=== PATIENT | male | born 1965 | race Caucasian/White ===

== ENCOUNTER 2020-10-01 14:27 | Emergency (ER) | payer BC ==
[~2020-10-01] VITALS: Ht 185.4 cm; Wt 111.1 kg
== END 2020-10-01 15:44 | disposition home or self-care (01) ==
LOC: ER 15:26
DX: U07.1 COVID-19 (principal); I10 Essential (primary) hypertension
CPT/HCPCS: 99282; U0002

== ENCOUNTER 2023-10-15 18:15 | Inpatient (IN) | payer BC, OTHER ==
[~2023-10-15] VITALS: Ht 182.9 cm; Wt 113.4 kg
[2023-10-15] MEDS ORDERED: ASPIRIN 81 MG CHEW TAB PO ONE (18:30)
[2023-10-15 18:37] LABS: BASOPHILS % 0.3 % (0.0-1.0); EOSINOPHILS % 0.3 % (0.0-6.0); HEMATOCRIT 43.8 % (38.2-49.6); HEMOGLOBIN 15.4 g/dL (14.0-18.0); LYMPHOCYTES # (AUTO) 7.8 (1.0-3.2); MEAN CORPUSCULAR HEMOGLOBIN 28.3 pg (28-32); MEAN CORPUSCULAR HGB CONC 35.2 g/dL (31-35); MEAN CORPUSCULAR VOLUME 80.5 fL (81-99); MONOCYTES # (AUTO) 0.9 (0.2-0.8); MONOCYTES % 6.1 % (4.4-11.3); NEUTROPHILS # (AUTO) 6.4 (2.1-6.9); NEUTROPHILS % 42.1 % (38.7-80.0); PLATELET COUNT 271 x10e3/uL (140-360); RED BLOOD COUNT 5.44 x10e6/uL (4.3-5.7); RED CELL DISTRIBUTION WIDTH 12.1 % (11.7-14.4); WHITE BLOOD COUNT 15.29 x10e3/uL (4.8-10.8)
[2023-10-15 18:51] LABS: ALBUMIN 4.5 g/dL (3.5-5.0); ALBUMIN/GLOBULIN RATIO 1.3 (0.8-2.0); ANION GAP 17.2 mmol/L (8-16); BILIRUBIN,TOTAL 1.2 mg/dL (0.2-1.2); CALCIUM 9.8 mg/dL (8.4-10.2); CREATININE, SERUM 0.79 mg/dL (0.72-1.25)
[2023-10-15 18:56] LABS: POTASSIUM 3.2 mmol/L (3.5-5.1)
[2023-10-15 18:57] LABS: TROPONIN I 0.016 ng/mL (0-0.300)
[2023-10-15] MEDS ORDERED: Morphine 4mg INJECTION 4 MG/ML INJ IV STA (19:03)
[2023-10-15] MEDS ORDERED: ONDANSETRON HCL INJ 2MG/ML 2ML 2 MG/ML VIAL IV STA (19:03)
[2023-10-15] MEDS ORDERED: IOPAMIDOL 370 MG/ML 100 ML INFUS..BTL INJ ONE (19:22)
[2023-10-15] MEDS ORDERED: Morphine 4mg INJECTION 4 MG/ML INJ IV PRN (21:30)
[2023-10-15] MEDS ORDERED: ONDANSETRON HCL INJ 2MG/ML 2ML 2 MG/ML VIAL IV PRN (21:30)
[2023-10-15] MEDS: SODIUM CHLORIDE 0.9% 1000ML 1,000 ML IV SCH (22:15)
[2023-10-15 22:54] LABS: TROPONIN I 0.016 ng/mL (0-0.300)
[2023-10-16] MEDS: SODIUM CHLORIDE 0.9% 1000ML 1,000 ML IV SCH ×2 (05:23→18:15)
[2023-10-16 05:48] LABS: BASOPHILS % 0.2 % (0.0-1.0); EOSINOPHILS # (AUTO) 0.1 (0.0-0.4); EOSINOPHILS % 0.8 % (0.0-6.0); HEMATOCRIT 41.1 % (38.2-49.6); HEMOGLOBIN 14.1 g/dL (14.0-18.0); LYMPHOCYTES # (AUTO) 7.5 (1.0-3.2); LYMPHOCYTES % 57.8 % (18.0-39.1); MEAN CORPUSCULAR HGB CONC 34.3 g/dL (31-35); MEAN CORPUSCULAR VOLUME 81.7 fL (81-99); MONOCYTES # (AUTO) 0.9 (0.2-0.8); MONOCYTES % 6.8 % (4.4-11.3); NEUTROPHILS # (AUTO) 4.4 (2.1-6.9); NEUTROPHILS % 34.2 % (38.7-80.0); PLATELET COUNT 219 x10e3/uL (140-360); RED BLOOD COUNT 5.03 x10e6/uL (4.3-5.7); RED CELL DISTRIBUTION WIDTH 12.3 % (11.7-14.4)
[2023-10-16 06:09] LABS: ALBUMIN/GLOBULIN RATIO 1.3 (0.8-2.0); ANION GAP 15.1 mmol/L (8-16); CALCIUM 9.5 mg/dL (8.4-10.2); CREATININE, SERUM 0.82 mg/dL (0.72-1.25); TOTAL PROTEIN 7.2 g/dL (6.5-8.1)
[2023-10-16 06:30] LABS: POTASSIUM 3.1 mmol/L (3.5-5.1)
[2023-10-16 06:41] LABS: TROPONIN I 0.013 ng/mL (0-0.300)
[2023-10-16] MEDS ORDERED: MELATONIN 3 MG TAB PO PRN (06:45)
[2023-10-16] MEDS ORDERED: SIMETHICONE 80 MG CHEW PO PRN (06:45)
[2023-10-16] MEDS ORDERED: METOPROLOL TARTRATE INJ 1 MG/ML VIAL IV PRN (06:45)
[2023-10-16] MEDS ORDERED: DOCUSATE SODIUM 100 MG CAP PO PRN (06:45)
[2023-10-16] MEDS ORDERED: ALBUTEROL/IPRATROPIUM 3 ML NEB NEB PRN (06:45)
[2023-10-16] MEDS ORDERED: ACETAMINOPHEN 325 MG TAB PO PRN (06:45)
[2023-10-16 07:31] LABS: CHOL/HDL RATIO 4.5 (3.9-4.7)
[2023-10-16] MEDS ORDERED: METOPROLOL TARTRATE 25 MG TAB PO SCH (09:00)
[2023-10-16] MEDS ORDERED: METFORMIN HCL850 MG PO (09:59)
[2023-10-16] MEDS ORDERED: LISINOPRIL-HCT1 EAC1 PO (09:59)
[2023-10-16] MEDS ORDERED: METOPROLOL SUCC50 MG PO (09:59)
[2023-10-16] MEDS ORDERED: DEXTROAMP-AMPHE20 M1 PO (09:59)
[2023-10-16] MEDS ORDERED: ATORVASTATIN CA40 MG PO (09:59)
[2023-10-16] MEDS ORDERED: ASPIRIN81 MG PO (10:00)
[2023-10-16] MEDS ORDERED: OMEPRAZOLE40 MG PO (10:00)
[2023-10-16] MEDS: ASPIRIN 325 MG TAB PO SCH (10:07)
[2023-10-16] MEDS: METOPROLOL TARTRATE 25 MG TAB PO SCH ×2 (10:10→22:05)
[2023-10-16 10:14] LABS: BILIRUBIN,URINE NEGATIVE (NEGATIVE); CLARITY,URINE CLEAR (CLEAR); COLOR,URINE YELLOW (YELLOW); GLUCOSE, URINE NEGATIVE (NEGATIVE); KETONES,URINE 2+ (NEGATIVE); LEUKOCYTE ESTERASE ,URINE NEGATIVE (NEGATIVE); NITRITE,URINE NEGATIVE (NEGATIVE); PH,URINE 6 (5 - 7); PROTEIN,URINE DIPSTICK NEGATIVE (NEGATIVE); URINE UROBILINOGEN 0.2 mg/dL (0.2 - 1)
[2023-10-16 10:16] LABS: BACTERIA,URINE FEW /HPF; EPITHELIAL CELLS,URINE RARE /LPF; RBC,URINE 0-5 /HPF (0-5); WBC,URINE (MAN) 0-5 /HPF (0-5)
[2023-10-16 12:12] LABS: EOSINOPHILS % (MANUAL) 1 % (0-7); LYMPHOCYTES % (MANUAL) 35 % (19-48); MONOCYTES % (MANUAL) 5 % (3.4-9.0); NEUTROPHILS % (MANUAL) 55 % (40-74); REACTIVE LYMPHOCYTES 4; SMUDGE CELLS FEW
[2023-10-16 12:13] LABS: PLATELET ESTIMATE ADEQUATE; PLATELET MORPHOLOGY COMMENT NORMAL
[2023-10-16] MEDS: METRONIDAZOLE 500MG/NS 100ML 100 ML IV SCH ×2 (13:16→18:17)
[2023-10-16 14:43] LABS: TROPONIN I 0.015 ng/mL (0-0.300)
[2023-10-16 16:44] VITALS: BP 124/81; PULSE 82; RESP 20; TEMP 98; O2SAT 97
[2023-10-16 16:45] VITALS: BP 124/81; PULSE 82; RESP 20; TEMP 98; O2SAT 97
[2023-10-16] MEDS ORDERED: ENOXAPARIN SOD INJ 40 MG/0.4 ML SYR SC SCH (17:00)
[2023-10-16 17:42] VITALS: BP 138/90; PULSE 75; RESP 18; TEMP 97.9; O2SAT 98
[2023-10-16] MEDS ORDERED: POTASSIUM CHLORIDE 20 MEQ TAB CR PO STA (18:54)
[2023-10-16 19:28] VITALS: BP 123/71; PULSE 62; RESP 18; TEMP 97.9; O2SAT 97
[2023-10-16] MEDS: ATORVASTATIN 40 MG TAB PO SCH (19:36)
[2023-10-16] MEDS: D5.45%NS/KCL 20MEQ 1,000 ML IV SCH (19:39)
[2023-10-16 20:00] VITALS: BP 123/71; PULSE 62; RESP 18; TEMP 97.9; O2SAT 97
[2023-10-16 23:38] VITALS: BP 121/77; PULSE 55; RESP 18; TEMP 97.6; O2SAT 96
[2023-10-17] MEDS: METRONIDAZOLE 500MG/NS 100ML 100 ML IV SCH ×2 (02:37→11:11)
[2023-10-17] MEDS: D5.45%NS/KCL 20MEQ 1,000 ML IV SCH (02:41)
[2023-10-17 03:27] VITALS: BP 119/72; PULSE 55; RESP 18; TEMP 97.6; O2SAT 96
[2023-10-17 05:59] LABS: INR 0.96
[2023-10-17 06:11] LABS: ALBUMIN 3.6 g/dL (3.5-5.0); ALBUMIN/GLOBULIN RATIO 1.2 (0.8-2.0); ANION GAP 12.7 mmol/L (8-16); BASOPHILS % 0.4 % (0.0-1.0); BILIRUBIN,TOTAL 0.7 mg/dL (0.2-1.2); CALCIUM 9.2 mg/dL (8.4-10.2); CREATININE, SERUM 0.76 mg/dL (0.72-1.25); EOSINOPHILS # (AUTO) 0.1 (0.0-0.4); EOSINOPHILS % 0.9 % (0.0-6.0); HEMATOCRIT 42.4 % (38.2-49.6); HEMOGLOBIN 14.3 g/dL (14.0-18.0); LYMPHOCYTES # (AUTO) 7.4 (1.0-3.2); MEAN CORPUSCULAR HEMOGLOBIN 27.8 pg (28-32); MEAN CORPUSCULAR HGB CONC 33.7 g/dL (31-35); MEAN CORPUSCULAR VOLUME 82.5 fL (81-99); MONOCYTES # (AUTO) 0.8 (0.2-0.8); MONOCYTES % 7.4 % (4.4-11.3); NEUTROPHILS % 26.1 % (38.7-80.0); PLATELET COUNT 226 x10e3/uL (140-360); POTASSIUM 3.7 mmol/L (3.5-5.1); RED BLOOD COUNT 5.14 x10e6/uL (4.3-5.7); RED CELL DISTRIBUTION WIDTH 12.4 % (11.7-14.4); TOTAL PROTEIN 6.6 g/dL (6.5-8.1); WHITE BLOOD COUNT 11.34 x10e3/uL (4.8-10.8)
[2023-10-17 06:33] LABS: THYROID STIMULATING HORMONE 0.837 uIU/mL (0.350-4.940)
[2023-10-17 06:49] VITALS: PULSE 73; RESP 20; O2SAT 98
[2023-10-17 08:00] VITALS: BP 118/79; PULSE 62; RESP 21; TEMP 97.9; O2SAT 96
[2023-10-17] MEDS: ASPIRIN 325 MG TAB PO SCH (08:15)
[2023-10-17] MEDS: ATORVASTATIN 40 MG TAB PO SCH (08:15)
[2023-10-17] MEDS: METOPROLOL TARTRATE 25 MG TAB PO SCH (08:16)
[2023-10-17 09:25] LABS: EOSINOPHILS % (MANUAL) 3 % (0-7); LYMPHOCYTES % (MANUAL) 43 % (19-48); MONOCYTES % (MANUAL) 6 % (3.4-9.0); NEUTROPHILS % (MANUAL) 37 % (40-74); PLATELET ESTIMATE ADEQUATE; PLATELET MORPHOLOGY COMMENT NORMAL; RBC MORPHOLOGY COMMENT NORMAL; REACTIVE LYMPHOCYTES 11
[2023-10-17] MEDS ORDERED: HEPARIN SOD/SOD CHLORIDE 2,000 ML ONE (10:07)
[2023-10-17] MEDS ORDERED: HEPARIN SOD (PORCINE) 1000 UNIT/ML 30ML ONE (10:07)
[2023-10-17] MEDS ORDERED: LIDOCAINE HCL 2% LOCAL 20 ML VIAL ONE (10:07)
[2023-10-17] MEDS ORDERED: NITROGLYCERIN/D5W 200 MCG/ML 250 ML ONE (10:08)
[2023-10-17] MEDS ORDERED: IOPAMIDOL 370 MG/ML 100 ML INFUS..BTL INJ ONE (10:08)
[2023-10-17] MEDS ORDERED: SODIUM CHLORIDE 0.9% 1000ML 1,000 ML ONE (10:08)
[2023-10-17] MEDS ORDERED: MIDAZOLAM HCL 2 MG/2 ML VIAL ONE (10:09)
[2023-10-17] MEDS ORDERED: FENTANYL CITRATE/PF 100MCG/2 ML INJ ONE (10:09)
[2023-10-17] MEDS ORDERED: Morphine 2mg Syringe 2 MG/ML SYR IV PRN (11:00)
[2023-10-17] MEDS ORDERED: ONDANSETRON HCL INJ 2MG/ML 2ML 2 MG/ML VIAL IV PRN (11:00)
[2023-10-17] MEDS ORDERED: SODIUM CHLORIDE 0.9% 1000ML 1,000 ML IV SCH (11:00)
[2023-10-17 12:00] VITALS: BP 127/96; PULSE 59; RESP 20; TEMP 98.6; O2SAT 99
[2023-10-17] MEDS ORDERED: METRONIDAZOLE500 MG PO (15:14)
== END 2023-10-17 15:57 | disposition home or self-care (01) | DRG 287 ==
LOC: ER 18:24 → ERHOLD 21:23 → MED/SURG 10-16 17:26 → OBSVTOIN 10-17 09:03
PROVIDERS: ADMIT Internal Medicine; ATTEND Internal Medicine
PROC: 4A023N7 Measurement of Cardiac Sampling and Pressure, Left Heart, Percutaneous Approach (ICD-10-PCS; principal; 2023-10-17)
PROC: B2111ZZ Fluoroscopy of Multiple Coronary Arteries using Low Osmolar Contrast (ICD-10-PCS; 2023-10-17)
PROC: B2151ZZ Fluoroscopy of Left Heart using Low Osmolar Contrast (ICD-10-PCS; 2023-10-17)
DX: I25.110 Atherosclerotic heart disease of native coronary artery with unstable angina pectoris (principal); E87.1 Hypo-osmolality and hyponatremia; R07.89 Other chest pain; K52.89 Other specified noninfective gastroenteritis and colitis; D72.829 Elevated white blood cell count, unspecified; E66.9 Obesity, unspecified; Z68.33 Body mass index [BMI] 33.0-33.9, adult; D35.01 Benign neoplasm of right adrenal gland; E78.00 Pure hypercholesterolemia, unspecified; E11.9 Type 2 diabetes mellitus without complications; I10 Essential (primary) hypertension; R55 Syncope and collapse; E87.6 Hypokalemia; E87.8 Other disorders of electrolyte and fluid balance, not elsewhere classified; K21.9 Gastro-esophageal reflux disease without esophagitis; Z87.891 Personal history of nicotine dependence; Z79.82 Long term (current) use of aspirin; Z79.899 Other long term (current) drug therapy; Z79.84 Long term (current) use of oral hypoglycemic drugs; Z20.822 Contact with and (suspected) exposure to COVID-19
CPT/HCPCS: 36415; 71045; 71260; 74176; 76937; 80053; 80061; 81001; 82550; 83036; 83690; 83880; 84443; 84484; 85025; 85610; 93005; 93306; 93458; 94799; 99152; 99153; 99284; C1760; C1766; C1769; C1887; G0378; J1644; J1650; J2001; J2250; J2270; J2405; J7030; Q9967; U0002